=== PATIENT | female | born 2000 | race Caucasian/White ===

== ENCOUNTER 2019-11-16 08:55 | Emergency (ER) | payer MEDICAID ==
[~2019-11-16] VITALS: Ht 162.6 cm; Wt 70.0 kg
[~2019-11-16 08:55] MED LIST: PENI500T2 PO
[2019-11-16] MEDS ORDERED: normal saline 1000ML IV soln IVB ONE (09:20)
[2019-11-16] MEDS ORDERED: morphine 4 MG/ML inj SYRINge IV ONE (09:20)
[2019-11-16] MEDS ORDERED: ondansetron/PF 4mg/2ml inj IV ONE (09:20)
[2019-11-16] MEDS ORDERED: fentaNYL/PF 50MCG/1 ML 2ML syringe IV ONE (09:25)
[2019-11-16] MEDS ORDERED: etomidate 2mg/ml inj. IV ONE (09:25)
[2019-11-16] MEDS ORDERED: HYDR-4383 PO (10:46)
[2019-11-16 11:37] VITALS: BP 117/62
== END 2019-11-16 11:40 | disposition home or self-care (01) ==
LOC: ER 08:56
DX: S53.124A Posterior dislocation of right ulnohumeral joint, initial encounter (principal); F17.200 Nicotine dependence, unspecified, uncomplicated; Z79.899 Other long term (current) drug therapy; W01.0XXA Fall on same level from slipping, tripping and stumbling without subsequent striking against object, initial encounter; Y93.89 Activity, other specified; Y92.89 Other specified places as the place of occurrence of the external cause; Y99.8 Other external cause status
CPT/HCPCS: 24600; 73070; 73080; 96374; 96375; 99152; 99291; J2270; J2405; J3010; J7030; 94760